=== PATIENT | female | born 1980 | race Caucasian/White ===

== ENCOUNTER 2017-02-11 12:28 | Emergency (ER) | payer OTHER ==
[~2017-02-11] VITALS: Ht 162.6 cm; Wt 95.2 kg
[~2017-02-11 12:28] MED LIST: ALBIPROI INH; ALBU.083IS IH; ALBU90I INH; ALBU90OI; ALBU90OI INH; ALBU90OI6 INH; ALBU90OI61 INH; ALBUIS IH; AMOCLA875 PO; AMOX500 PO; ANTOXYBENA BOTHEARS; ATOM40; AZIT250 PO; Alprazolam1 MG PO; Amoxil400 MG/5 M PO; BENTYL20 MG PO; BUSP15 PO; CEPH500 PO; CHILDREN S VIT; CLIN300 PO; CODACE30 PO; CODGUAEL PO; COMBIVENT RESPIM4 GM; CYCL10; CYCL10 PO; Crutch1 EACH MISC; DICL25ER PO; DIPH50 PO; DOXY100 PO; Duoneb 2.5-0.5 M3 ML INH; ESCI10 PO; ESCI20 PO; Esgic Tablet1 EACH PO; FLUSAL1005; FLUSAL1005 IH; FLUSAL2505; FLUSAL2505 IH; GUAPHELA PO; HYDACE10B; HYDACE5 PO; HYDHCL25 PO; IBUP600; IBUP600 PO; IBUP800; IBUP800 PO; INDO25 PO; LEVO750 PO; LEVSOD100 PO; LEVSOD50; MEDICAL MARIJUANNA; METCAR500 PO; METF500; METPRE4DP PO; MONT10T; MONT10T PO; NAPR500; NAPR500 PO; NAPR550 PO; NEOPOLHCSU OT; NUVA RING; Naprosyn500 MG PO; ONDA4ODT MM; OXYACE5T PO; OXYACE7.5T PO; PENVK250 PO; PENVK500 PO; PIOG15; PRED10 PO; PRED20 PO; PROACE100 PO; PROM25 PO; Prednisone20 MG PO; Prednisone50 MG PO; RANI150; RXCLIN PO; RXCODACET PO; RXHYDGUAS PO; RXONDA4ODT MM; RXOXYACE PO; RXPENVK250 PO; RXPROACE PO; RXPROM25 PO; RXSULTRIDS PO; SERT100 PO; SERT25 PO; SULTRIDS PO; SUMA25 PO; TRAACE PO; TRAM50 PO; TRAZ50 PO; UNKNOWN DIURETIC; Ventolin5 MG/1 ML IH; Vistaril50 MG PO; Zofran Odt4 MG SL; Zofran4 MG PO; Zofran8 MG PO
[2017-02-11 13:41] LABS: Alanine Aminotransfer (ALT/SGP 26 U/L (12-78); Albumin, Blood 3.7 g/dL (3.4-5.0); Albumin/Globulin Ratio 0.9 (0.8-1.8); Alk Phos 84 U/L (50-136); Anion Gap 5 mmol/L (6-16); Aspartate Aminotrans (AST/SGOT 19 U/L (12-37); Bilirubin, Total 0.4 mg/dL (0.1-1.0); Blood Urea Nitrogen 6 mg/dL (8-24); Bun/Creatinine Ratio 8.5 (12.0-20.0); CO2, Blood 27 mmol/L (21-32); Calcium, Blood 9.1 mg/dL (8.5-10.1); Chloride, Blood 107 mmol/L (98-108); Globulin, Blood 4.3 g/dL (2.2-4.0); Glomerular Filtration Rate >60 (60-); Glucose, Blood 100 mg/dL (70-99); Sodium, Blood 139 mmol/L (136-145)
[2017-02-11 13:45] LABS: Source, Urine Clean Catch
[2017-02-11 13:52] LABS: Bilirubin, Urine Neg (Neg); Blood, Urine 1+ (Neg); Glucose Qualitative, Urine Neg (Neg); Ketones, Urine Neg (Neg); Leukocyte Esterase, Urine 1+ (Neg); Nitrite, Urine Neg (Neg); Protein, Urine Neg (Neg); Urobilinogen, Urine NORM (Normal); pH, Urine 6.5 (5.0-8.0)
[2017-02-11 14:10] LABS: BASOPHILS ABSOLUTE AUTO 0.03 K/mm3 (0.00-0.23); BASOPHILS PERCENT AUTO 0 % (0-2); EOSINOPHILS ABSOLUTE AUTO 0.16 K/mm3 (0.00-0.68); EOSINOPHILS PERCENT AUTO 2 % (0-6); Hematocrit 42.1 % (33.0-51.0); Hemoglobin 13.4 g/dL (11.5-16.0); IMMATURE GRAN ABSOLUTE AUTO 0.02 K/mm3 (0.00-0.10); IMMATURE GRAN PERCENT AUTO 0 % (0-1); LYMPHOCYTES ABSOLUTE AUTO 3.36 K/mm3 (0.84-5.20); LYMPHOCYTES PERCENT AUTO 35 % (21-46); MONOCYTES ABSOLUTE AUTO 0.68 K/mm3 (0.16-1.47); MONOCYTES PERCENT AUTO 7 % (4-13); Mean Corpuscular HGB 26.9 pg (26.0-34.0); Mean Corpuscular HGB Conc 31.8 g/dL (31.5-36.5); Mean Corpuscular Volume 84 fL (80-100); NEUTROPHILS ABSOLUTE AUTO 5.45 K/mm3 (1.96-9.15); NEUTROPHILS PERCENT AUTO 56 % (41-73); Platelet Count 343 K/mm3 (150-400); RDW Coefficient Variation 15.4 % (11.7-14.2); RDW Standard Deviation 47.3 fL (35.1-46.3); Red Blood Cell Count 4.99 M/mm3 (3.80-5.20)
[2017-02-11 14:46] LABS: Appearance, Urine Hazy (Clear); Color, Urine Yellow (P-Yellow)
[2017-02-11 14:47] LABS: Red Blood Cells, Urine 0-2 /hpf (0-2); White Blood Cells, Urine 0-2 /hpf (0-5)
[2017-02-11 14:48] LABS: Bacteria Few /hpf; Squamous Epithelial Cells Many /hpf (Few)
[2017-02-11] MEDS ORDERED: Flagyl500 MG PO (17:56)
[2017-02-11] MEDS ORDERED: CIPR500 PO (17:56)
[2017-06-06] MEDS ORDERED: Zofran4 MG PO (21:40)
[2017-12-31] MEDS ORDERED: TRAZ50 PO (00:24)
[2018-01-20] MEDS ORDERED: Prednisone20 MG PO (04:50)
== END 2017-02-11 17:58 | disposition home or self-care (01) ==
LOC: ER 12:28
PROVIDERS: Physician Assistant
DX: K52.9 Noninfective gastroenteritis and colitis, unspecified (principal); J44.9 Chronic obstructive pulmonary disease, unspecified; F17.200 Nicotine dependence, unspecified, uncomplicated; Z88.5 Allergy status to narcotic agent; Z88.8 Allergy status to other drugs, medicaments and biological substances
CPT/HCPCS: 36415; 74177; 80053; 81000; 81001; 81025; 83690; 84702; 85025; 87086; 99284; Q9967

== ENCOUNTER 2017-07-31 14:28 | Emergency (ER) | payer OTHER ==
[~2017-07-31] VITALS: Ht 162.6 cm; Wt 88.5 kg
[~2017-07-31 14:28] MED LIST changes: +CIPR500 PO; +Flagyl500 MG PO
[2017-07-31] MEDS ORDERED: TRAZ50 PO (14:42)
[2017-07-31] MEDS ORDERED: CITA20 PO (14:42)
[2017-07-31] MEDS ORDERED: ONDA4ODT MM (15:58)
== END 2017-07-31 16:07 | disposition home or self-care (01) ==
LOC: ER 14:28
DX: S09.90XA Unspecified injury of head, initial encounter (principal); S20.221A Contusion of right back wall of thorax, initial encounter; Z88.5 Allergy status to narcotic agent; Z88.8 Allergy status to other drugs, medicaments and biological substances; Z79.899 Other long term (current) drug therapy; J44.9 Chronic obstructive pulmonary disease, unspecified; F17.200 Nicotine dependence, unspecified, uncomplicated; Y04.2XXA Assault by strike against or bumped into by another person, initial encounter
CPT/HCPCS: 70450; 72070; 96372; 99284; J0780; J1200; J1885

== ENCOUNTER 2017-12-12 01:17 | Emergency (ER) | payer OTHER ==
[~2017-12-12] VITALS: Ht 162.6 cm; Wt 81.7 kg
[~2017-12-12 01:17] MED LIST changes: +CITA20 PO
[2017-12-12 02:03] LABS: BASOPHILS ABSOLUTE AUTO 0.06 K/mm3 (0.00-0.23); BASOPHILS PERCENT AUTO 0 % (0-2); EOSINOPHILS PERCENT AUTO 1 % (0-6); Hematocrit 40.6 % (33.0-51.0); IMMATURE GRAN ABSOLUTE AUTO 0.09 K/mm3 (0.00-0.10); IMMATURE GRAN PERCENT AUTO 0 % (0-1); LYMPHOCYTES ABSOLUTE AUTO 3.18 K/mm3 (0.84-5.20); LYMPHOCYTES PERCENT AUTO 16 % (21-46); MONOCYTES ABSOLUTE AUTO 1.24 K/mm3 (0.16-1.47); MONOCYTES PERCENT AUTO 6 % (4-13); Mean Corpuscular HGB 27.6 pg (26.0-34.0); Mean Corpuscular Volume 86 fL (80-100); Mean Platelet Volume 11.1 fL (9.1-12.4); NEUTROPHILS ABSOLUTE AUTO 15.36 K/mm3 (1.96-9.15); NEUTROPHILS PERCENT AUTO 77 % (41-73); Platelet Count 322 K/mm3 (150-400); RDW Coefficient Variation 13.7 % (11.7-14.2); RDW Standard Deviation 43.4 fL (35.1-46.3); Red Blood Cell Count 4.71 M/mm3 (3.80-5.20); White Blood Cell Count 20.03 K/mm3 (4.00-11.30)
[2017-12-12 02:21] LABS: Alanine Aminotransfer (ALT/SGP 28 U/L (12-78); Alk Phos 77 U/L (50-136); Anion Gap 9 mmol/L (6-16); Aspartate Aminotrans (AST/SGOT 20 U/L (12-37); Bilirubin, Total 0.2 mg/dL (0.1-1.0); Blood Urea Nitrogen 13 mg/dL (8-24); Bun/Creatinine Ratio 17.9 (12.0-20.0); CO2, Blood 23 mmol/L (21-32); Chloride, Blood 107 mmol/L (98-108); Creatinine, Blood 0.73 mg/dL (0.40-1.00); Glomerular Filtration Rate >60 (60-); Glucose, Blood 121 mg/dL (70-99); Potassium, Blood 3.5 mmol/L (3.5-5.5); Sodium, Blood 139 mmol/L (136-145)
== END 2017-12-12 04:38 | disposition home or self-care (01) ==
LOC: ER 01:17
PROVIDERS: Emergency Medicine
DX: R11.2 Nausea with vomiting, unspecified (principal); G44.40 Drug-induced headache, not elsewhere classified, not intractable; T43.625A Adverse effect of amphetamines, initial encounter; J44.9 Chronic obstructive pulmonary disease, unspecified; Z88.5 Allergy status to narcotic agent; Z88.8 Allergy status to other drugs, medicaments and biological substances; Z79.899 Other long term (current) drug therapy
CPT/HCPCS: 36415; 80053; 81025; 83690; 85025; 93005; 93010; 96361; 96374; 96375; 99284-25; J1630; J1885; J2405; J7030

== ENCOUNTER 2017-12-15 14:04 | Emergency (ER) | payer OTHER ==
[~2017-12-15] VITALS: Ht 162.6 cm; Wt 81.7 kg
[2017-12-15] MEDS ORDERED: Robaxin500 MG PO (16:06)
[2017-12-15] MEDS ORDERED: KETO10 PO (16:06)
== END 2017-12-15 16:10 | disposition home or self-care (01) ==
LOC: ER 14:04
DX: M54.2 Cervicalgia (principal); Z88.5 Allergy status to narcotic agent; Z88.8 Allergy status to other drugs, medicaments and biological substances; Z79.899 Other long term (current) drug therapy; J44.9 Chronic obstructive pulmonary disease, unspecified; F17.200 Nicotine dependence, unspecified, uncomplicated
CPT/HCPCS: 72125; 96372; 99283-25; J1885

== ENCOUNTER 2018-06-10 12:46 | Inpatient (IN) | payer OTHER ==
[~2018-06-10] VITALS: Ht 162.6 cm; Wt 66.5 kg
[~2018-06-10 12:46] MED LIST changes: +KETO10 PO; +Robaxin500 MG PO
[2018-06-10 13:20] LABS: BASOPHILS ABSOLUTE AUTO 0.03 K/mm3 (0.00-0.23); BASOPHILS PERCENT AUTO 0 % (0-2); EOSINOPHILS ABSOLUTE AUTO 0.04 K/mm3 (0.00-0.68); EOSINOPHILS PERCENT AUTO 0 % (0-6); Hematocrit 38.8 % (33.0-51.0); IMMATURE GRAN ABSOLUTE AUTO 0.03 K/mm3 (0.00-0.10); IMMATURE GRAN PERCENT AUTO 0 % (0-1); LYMPHOCYTES ABSOLUTE AUTO 2.01 K/mm3 (0.84-5.20); LYMPHOCYTES PERCENT AUTO 20 % (21-46); MONOCYTES ABSOLUTE AUTO 0.69 K/mm3 (0.16-1.47); MONOCYTES PERCENT AUTO 7 % (4-13); Mean Corpuscular HGB 26.6 pg (26.0-34.0); Mean Corpuscular HGB Conc 30.9 g/dL (31.5-36.5); Mean Corpuscular Volume 86 fL (80-100); Mean Platelet Volume 10.3 fL (9.1-12.4); NEUTROPHILS ABSOLUTE AUTO 7.35 K/mm3 (1.96-9.15); NEUTROPHILS PERCENT AUTO 72 % (41-73); Platelet Count 404 K/mm3 (150-400); RDW Coefficient Variation 14.3 % (11.7-14.2); RDW Standard Deviation 44.4 fL (35.1-46.3); Red Blood Cell Count 4.51 M/mm3 (3.80-5.20); White Blood Cell Count 10.15 K/mm3 (4.00-11.30)
[2018-06-10 13:27] LABS: Salicylate <1.7 mg/dL (2.8-20.0)
[2018-06-10 13:32] LABS: Acetaminophen, Random <2.0 ug/mL (10.0-30.0)
[2018-06-10 13:40] LABS: Alanine Aminotransfer (ALT/SGP 50 U/L (12-78); Albumin, Blood 3.9 g/dL (3.4-5.0); Alk Phos 79 U/L (50-136); Anion Gap 6 mmol/L (6-16); Aspartate Aminotrans (AST/SGOT 53 U/L (12-37); Bilirubin, Total 0.4 mg/dL (0.1-1.0); Blood Urea Nitrogen 12 mg/dL (8-24); Bun/Creatinine Ratio 15.4 (12.0-20.0); CO2, Blood 28 mmol/L (21-32); Calcium, Blood 8.9 mg/dL (8.5-10.1); Chloride, Blood 108 mmol/L (98-108); Creatinine, Blood 0.78 mg/dL (0.40-1.00); Globulin, Blood 3.9 g/dL (2.2-4.0); Glomerular Filtration Rate >60 (60-); Glucose, Blood 133 mg/dL (70-99); Potassium, Blood 4.4 mmol/L (3.5-5.5); Sodium, Blood 142 mmol/L (136-145); Total Protein, Blood 7.8 g/dL (6.4-8.2)
[2018-06-10 14:21] LABS: U Amphetamine Screen DETECTED; U Barbituate Screen Not Detected; U Benzodiazapine Screen Not Detected; U Buprenorphine Screen Not Detected; U Cannabinoids Screen DETECTED; U Cocaine Screen Not Detected; U Methadone Screen Not Detected; U Methamphetamine Screen DETECTED; U Opiates Screen Not Detected; U Oxycodone Screen Not Detected; U Phencyclidine Screen Not Detected; U Propoxyphene Screen Not Detected
[2018-06-10 16:40] LABS: PCO2 Arterial 42.4 mmHg (35-45); PO2 Arterial 186 mmHg (80-100); pH Blood Arterial 7.41 (7.35-7.45)
--- NOTE | 2018-06-10 18:41 | NUR ---
1530 PT ADMITTED TO ICU-5 VIA STRETCHER AND INTUBATED. PROPOFOL GTT AT 50MCG AND INC. TO 60MCG. PT ATTEMPTING TO RAISE OFF OF BED AND REACH FOR ETT EVEN WITH RESTRAITS ON. PRN MEDS TO FOLLOW. LUNGS CLEAR TO ASCULTATION BUT PT HAS COPIOUS CLEAR/WHITE SECREEATIONS. IVÁN NEWTON AND NAHID IN SHORTLY AFTER ADMIT AND NEW ORDERS NOTED. DR WHITFIELD REQUESTING CTA FOR TRAMATIC CAROTID VESSEL DISECTION AND TO BE ARRANGED DEMOND. PT TO CT AT 1730 WITH RT AND TECH AND CALM WITH ATIVAN IN ADDITION TO ATIVAN.
--- NOTE | 2018-06-10 18:46 | NUR ---
PT RESTING WELL AFTER EXTRA ATIVAN GIVEN PROPOFOL ALONE HAS NOT BEEN SUFFICIENT TO MANNAGE AGITATION. VENT SETTINGS REMAIN AC 16-350-40%-5 PEEP. SATS NOTED AND STABLE. SBP NOTED IN 150-160 RANGE. VS AND I/O NOTED. FAMILY IN TO VISIT.
--- NOTE | 2018-06-10 23:37 | NUR ---
CARE ASSUMED REPORT RECEIVED, CARE ASSUMED AT 1900. PT INTUBATED AND SEDATED. MULTIPLE FAMILY MEMBERS IN SINCE ASSUMING CARE. VITALS STABLE. SEE SHIFT ASSESSMENT. ATTEMPTED TO TITRATE PROPOFOL DOWN, PT QUICKLY BECAME AGITATED, PULLING AT RESTRAINTS AND SHAKING HEAD FROM LEFT TO RIGHT. PT RESEDATED TO PROTECT LINES/TUBES AND TO MAINTAIN CERVICAL COLLAR PRECAUTIONS. WILL MINIMIZE STIMULI.
[2018-06-11 03:35] LABS: Hematocrit 40.2 % (33.0-51.0); Mean Corpuscular HGB 26.5 pg (26.0-34.0); Mean Corpuscular HGB Conc 29.9 g/dL (31.5-36.5); Mean Platelet Volume 10.5 fL (9.1-12.4); Platelet Count 301 K/mm3 (150-400); RDW Coefficient Variation 14.4 % (11.7-14.2); RDW Standard Deviation 46.5 fL (35.1-46.3); Red Blood Cell Count 4.53 M/mm3 (3.80-5.20); White Blood Cell Count 11.86 K/mm3 (4.00-11.30)
[2018-06-11 03:43] LABS: Mean Corpuscular Volume 89 fL (80-100)
[2018-06-11 04:01] LABS: Alanine Aminotransfer (ALT/SGP 40 U/L (12-78); Albumin, Blood 3.4 g/dL (3.4-5.0); Alk Phos 71 U/L (50-136); Anion Gap 7 mmol/L (6-16); Aspartate Aminotrans (AST/SGOT 44 U/L (12-37); Bilirubin, Total 0.4 mg/dL (0.1-1.0); Blood Urea Nitrogen 8 mg/dL (8-24); Bun/Creatinine Ratio 10.5 (12.0-20.0); CO2, Blood 26 mmol/L (21-32); Calcium, Blood 8.5 mg/dL (8.5-10.1); Chloride, Blood 110 mmol/L (98-108); Creatinine, Blood 0.77 mg/dL (0.40-1.00); Globulin, Blood 3.5 g/dL (2.2-4.0); Glomerular Filtration Rate >60 (60-); Glucose, Blood 69 mg/dL (70-99); Magnesium, Blood 2.3 mg/dL (1.6-2.4); Phosphorus, Blood 4.2 mg/dL (2.5-4.9); Potassium, Blood 3.9 mmol/L (3.5-5.5); Sodium, Blood 143 mmol/L (136-145); Total Protein, Blood 6.9 g/dL (6.4-8.2); Troponin I <0.015 ng/mL (0.000-0.040)
[2018-06-11 04:27] LABS: BAND PERCENT MAN 3 % (0-8); BASOPHILS PERCENT MAN 0 % (0-2); EOSINOPHILS ABSOLUTE MAN 0.11 K/mm3 (0.00-0.68); EOSINOPHILS PERCENT MAN 1 % (0-6); LYMPHOCYTES ABSOLUTE MAN 3.55 K/mm3 (0.84-5.20); LYMPHOCYTES PERCENT MAN 30 % (21-46); MONOCYTES ABSOLUTE MAN 1.18 K/mm3 (0.16-1.47); MONOCYTES PERCENT MAN 10 % (4-13); NEUTROPHILS ABSOLUTE MAN 6.99 K/mm3 (1.96-9.15); SEG NEUTROPHILS PERCENT MAN 56 % (41-73); TOTAL CELLS COUNTED 100
--- NOTE | 2018-06-11 05:00 | NUR ---
DR. URENA COMMUNICATION SPOKE WITH DR. URENA REGARDING PT'S GLUCOSE ON LABS THIS AM. NEW ORDER FOR FLUID CHANGE AND BLOOD SUGAR MONITORING.
--- NOTE | 2018-06-11 05:12 | NUR ---
SEDATION TITRATION/NEURO ASSESSMENTS AT THIS TIME PT HAS NOT BEEN CLEARED BY DR. WHITFIELD FROM C-SPINE PRECAUTIONS. WITH ANY STIMULI PT BECOMES AGITATED THRASHING HEAD, NECK, ARMS AND LEGS. PT SITS PULLS LEGS UP IN BED NEARLY REACHING ETT. PT HAS BEEN MEDICATED WITH PROPOFOL AND ATIVAN, UNABLE TO TITRATE SEDATION UNTIL C-SPINE COLLAR CLEARANCE. PT HAS CONSISTENTLY WITHDRAWN TO PAIN IN ALL EXTREMITIES, PUPILS REMAIN PINPOINT WITH NO MOVEMENT. PT NOTED TO OPEN EYES SPONTANEOUSLY ONCE LAST NIGHT WITH STIMULI. OTHERWISE, EYES CLOSED. STRENGTH EQUAL THROUGHOUT. PT REMAINS IN SOFT WRIST RESTRAINTS AND MITTS DUE TO EXTREME AGITATION WITH STIMULI AND RISK FOR SELF-EXTUBATION OR DAMAGE TO LINES/TUBES.
[2018-06-11 05:13] LABS: PCO2 Arterial 43.9 mmHg (35-45); PO2 Arterial 92.2 mmHg (80-100)
--- NOTE | 2018-06-11 06:25 | NUR ---
SUMMARY THIS MORNING AFTER ATIVAN, PT SEDATED SUFFICIENTLY TO ALLOW CARES WITHOUT BECOMING AGITATED. BY END OF COMPLETION OF X-RAY AND ADL'S, PT WAS AROUSING, COUGHING, SITTING COMPLETELY UP IN BED. SETTLES WITH REASSURANCE AND DECREASED STIMULIATION. VITALS STABLE THROUGHOUT SHIFT. BP IMPROVED WITH SEDATION. FIO2 TITRATED TO 35%. OTHERWISE, VENT SETTINGS UNCHANGED AND PT TOLERATING WELL. RIGHT ANKLE CUT CONTINUES TO BLEED REQUIRING TWO DRESSING CHANGES LAST NIGHT. FAMILY CONTINUED TO BE IN AND OUT UNTIL APPROX 0100. SEE FLOWSHEETS/REASSESSMENTS.
--- NOTE | 2018-06-11 07:12 | NUR ---
REPORT TO NE UMAÑA AND NE BOWERS TO ASSUME CARE
--- NOTE | 2018-06-11 08:17 | NUR ---
SEDATION VACATION PROPOFOL TURNED OFF AT 0817 TILL 08. PT BRIEFLY OPENED EYES WITH VERBAL STIMULATION, FOLLOWED SIMPLE COMMANDS, BUT DID NOT ANSWER YES/NO QUESTIONS. PROPOFOL TURNED BACK ON AT 50MCG/KG/MIN.
--- NOTE | 2018-06-11 10:00 | NUR ---
DR WHITFIELD IN TO ASSESS PT. UDPDATED WITH PT'S STATUS. DR WHITFIELD REPORTS THAT PT CANNOT BE CLEARED FROM C-SPINE COLLAR UNTIL PT IS EXTUBATED AND CAN PARTICIPATE IN A PHYSICAL C-SPINE EXAM.
--- NOTE | 2018-06-11 11:07 | NUR ---
DR. NEWTON ASSESSED PATIENT FOR POSSIBLE EXTUBATION PER DR. NEWTON. PROPOFOL PLACED ON STANDBY AT THIS TIME.
--- NOTE | 2018-06-11 12:00 | NUR ---
SPOKE WITH THE CAMERA/SITTER AND VERIFIED PT IS BEING MONITORED VIA CAMERA AT 1159.
--- NOTE | 2018-06-11 12:02 | NUR ---
EXTUBATED PT AT 1150, OUT OF RESTRAINTS AT 1150, FACE SHEET FAXED DOWN TO ER FOR DR. JARRETT, MENTAL HEALTH ENVIRONMENT RISK ASSESSMENT COMPLETE, AND DR. GREEN AND DR. NEWTON PRESENT AND INITIATING TWO MD HOLD.
--- NOTE | 2018-06-11 12:35 | NUR ---
PT REMOVING HER CERVICAL SPINE COLLAR. HAD TO REAPPLY IT AND EDUCATE WHY IT IS IMPORTANT TO NOT DO THAT.
--- NOTE | 2018-06-11 12:53 | NUR ---
PT ADVOCATE: PT ASKS NE BOWERS IF SHE CAN GO TO THE COURTY[facility]. THIS RN EDUCATED PT THAT R/T 2 MD HOLD, THAT SHE COULD NOT LEAVE THE ROOM. PT STATES, "MY AND 2 GAURDS CAN GO WITH ME." EXPLAINED ONCE MORE THAT REQUEST CANNOT BE FULFILLED R/T PT PT'S HOLD/CONDITION (RECENT EXTUBATION). PT ASKS TO SPEAK TO PT ADVOCATE, WHOM WILL BE AT THE BEDSIDE SHORTLY TO SPEAK WITH PT.
--- NOTE | 2018-06-11 13:11 | NUR ---
CALLED TO CONFIRMED THAT PT'S FACESHEET FOR PYSCH REFERRAL ARRIVED TO THE ER. CRISIS RN DID CONFIRM THAT PAPERWORK ARRIVED.
--- NOTE | 2018-06-11 13:28 | NUR ---
PT ADVOCATED ARRIVED. INTRODUCED MASON TO PATIENT AND EXPLAINED SHE WAS THE PT ADVOCATED. PT STARTED EXPAINING THAT OTHER INMATES AND HERSELF WERE TYING TOWELS TOGETHER TO SEE WHO COULD GET THEIRS TO HOLD TIGHT WHILE TRYING TO HANG THEMSELVES. ALSO, REPORTED THAT THEY WERE USING RAZORS TO SEE HOW LONG IT TOOK TO GET TO AN ARTERY. PT SHAKES HER HEAD AFTER STATING THIS AND SAYS, "IT WAS STUPID."
--- NOTE | 2018-06-11 13:50 | NUR ---
DR. WHITFIELD SAW PT AND REEVALUATED PT FOR C-SPINE COLLAR. NOTED TENDERNESS IN POSTERIOR LIGAMENTS OF NECK AND STATED TO NOT TAKE COLLAR OFF AT THIS TIME.
--- NOTE | 2018-06-11 14:44 | NUR ---
PT UPDATE: PT PULLED OUT IV WHILE NE BOWERS WAS GETTING PT MORE JUICE PER REQUEST. WHILE ELISSA WAS LOOKING FOR A NEW IV SITE, PT WAS CONTINUOUSLY TRYING TO PULL OFF VEST. UNABLE TO REDIRECT PT, AND SHE CONTINUED TO ATTEMPT TO PULL OFF VEST OR SLIDE OUT OF IT. PT WAS THEN PLACED INTO BILATERAL WRIST RESTRAINTS IN ADDITION TO VEST TO KEEP PT SAFE. SECURITY CALLED TO BEDSIDE TO ASSIST WITH THIS.
--- NOTE | 2018-06-11 18:00 | NUR ---
PT UPDATE: PT CONTINUES TO THRASH IN BED AND ATTEMPTS TO GET IV'S/TELEMETRY AND BP WIRES AND PULL THEM APART. PT BROKE BP CUFF. PT FOUND USING TOES TO TRY TO GET OUT OF WRIST RESTRAINTS AND WAS NOT REDIRECTABLE AT THIS TIME. EXPLAINED TO PT THAT 4 POINT RESTRAINTS WOULD BE NEEDED IF SHE DID NOT CEASE HER DESTRUCTIVE BEHAVIORS, PT CONTINUED TO TRY TO GET OUT OF BILATERAL TAT RESTRAINTS USING TOES. PT PLACED IN 4 POINT RESTRAINTS AT THIS TIME.
--- NOTE | 2018-06-11 18:42 | NUR ---
SHIFT SUMMARY PT IS CURRENTLY SLEEPING AFTER MANY EVENTS OF AGITATION. PT IS ALERT AND MOSTLY ORIENTED TO HER SITUATION, HOWEVER, IS NOW ON TAT RESTRAINTS AFTER SLIPPING OUT OF SWB RESTRAINTS NUMEROUS TIMES. PT RIPPED OUT HER IV ON HER RIGHT HAND, AND THE CHORD TO THE BLOOD PRESSURE CUFF. PT'S HAS BEEN PRESENT OFF AND ON THROUGHOUT DAY.
--- NOTE | 2018-06-11 20:31 | NUR ---
PM NOTE. ASSUMED CARE OF PT APROX 1900, PT IS SEDATED AT THIS TIME W/4 POINT RESTRAINTS DUE TO HER PULLING LINES/TUBES AND ATTEMPTING TO CLIMB OUT OF BED. CIRCULATION AND PERSONAL NEEEDS WERE CHECKED AT THE START OF THIS SHIFT. PT'S HR NSR IN THE 80'S PER AGENT CONTRACT CLERK. PT'S BP 152/93. NO EDEMA NOTED ON ASSESSMENT. L/S CLEAR T/O AND DIM IN THE BASES, PT IS ON RA W/SATS >92%. BT PRESENT AND HYPOACTIVE, ABD IS SOFT AND NONTENDER TO PALP. CALL LIGHT IN REACH, BED IS LOCKED AND LOW WILL CONTINUE TO MONITOR.
--- NOTE | 2018-06-11 22:38 | NUR ---
PT UPDATE... PT WAS FOUND TO BE INCONT OF URINE, PT VERY DROWSY AT THIS TIME BUT IS ABLE TO RESPOND TO VERBAL STIMULI/TOUCH. PT WAS GIVEN A BED BATH AND LINEN CHANGE, ATTENDS WAS PLACED TO PROVIDE PROTECTION AND DIGNITY TO THE PT. PT WAS TAKEN OUT OF THE TUFF CUFFS, PT IS CURRENTLY IN BILAT SOFT WRIST RESTRAINTS AND ROSA VEST. PT IS RELAXED AND SLEEPING AT THIS TIME. CALL LIGHT IN REACH, BED IS LOCKED AND LOW WILL CONTINUE TO MONITOR.
--- NOTE | 2018-06-11 22:53 | NUR ---
PT UPDATE... PT HAS BEEN MAKING A "HOARSE, OBSTRUCTIVE, SNORING" SOUND WHEN BREATHING, PT'S HEAD HAS BEEN REPOSITIONED SEVERAL TIMES AND THIS DOES NOT HELP OR CHANGE THE SOUND. PT'S O2 SATS ARE >95% ON RA, PT IS NOT APNIC AT THIS TIME. WILL CONINUE TO MONITOR.
--- NOTE | 2018-06-12 01:20 | NUR ---
PT UPDATE... PT'S BREATHING HAS CONTINUED TO HAVE SEVERE STRIDOR QUAILITY, PROVIDER AND RT INVOLVED AND ORDERS OBTAINED. PT'S O2 SATS ARE 94% ON RA AT THIS TIME, POSITIONING IS NOT IMPROVING THE STRIDOR AT THIS TIME. WILL CONTINUE TO MONITOR.
[2018-06-12 03:30] LABS: BASOPHILS ABSOLUTE AUTO 0.04 K/mm3 (0.00-0.23); BASOPHILS PERCENT AUTO 0 % (0-2); EOSINOPHILS ABSOLUTE AUTO 0.14 K/mm3 (0.00-0.68); EOSINOPHILS PERCENT AUTO 1 % (0-6); Hematocrit 34.4 % (33.0-51.0); Hemoglobin 10.7 g/dL (11.5-16.0); IMMATURE GRAN ABSOLUTE AUTO 0.04 K/mm3 (0.00-0.10); IMMATURE GRAN PERCENT AUTO 0 % (0-1); LYMPHOCYTES ABSOLUTE AUTO 1.62 K/mm3 (0.84-5.20); LYMPHOCYTES PERCENT AUTO 13 % (21-46); MONOCYTES ABSOLUTE AUTO 0.67 K/mm3 (0.16-1.47); MONOCYTES PERCENT AUTO 5 % (4-13); Mean Corpuscular HGB 26.9 pg (26.0-34.0); Mean Corpuscular HGB Conc 31.1 g/dL (31.5-36.5); Mean Platelet Volume 9.8 fL (9.1-12.4); NEUTROPHILS ABSOLUTE AUTO 10.21 K/mm3 (1.96-9.15); NEUTROPHILS PERCENT AUTO 80 % (41-73); Platelet Count 280 K/mm3 (150-400); RDW Coefficient Variation 14.3 % (11.7-14.2); RDW Standard Deviation 45.2 fL (35.1-46.3); Red Blood Cell Count 3.98 M/mm3 (3.80-5.20); White Blood Cell Count 12.72 K/mm3 (4.00-11.30)
[2018-06-12 03:41] LABS: Mean Corpuscular Volume 86 fL (80-100)
[2018-06-12 03:53] LABS: Anion Gap 6 mmol/L (6-16); Blood Urea Nitrogen 5 mg/dL (8-24); Bun/Creatinine Ratio 7.6 (12.0-20.0); CO2, Blood 28 mmol/L (21-32); Calcium, Blood 8.2 mg/dL (8.5-10.1); Chloride, Blood 107 mmol/L (98-108); Creatinine, Blood 0.66 mg/dL (0.40-1.00); Glomerular Filtration Rate >60 (60-); Glucose, Blood 93 mg/dL (70-99); Potassium, Blood 3.5 mmol/L (3.5-5.5); Sodium, Blood 141 mmol/L (136-145)
--- NOTE | 2018-06-12 04:55 | NUR ---
SHIFT SUMMARY. PT HAS SLEPT HARD ALL SHIFT AND HAS NOT REQUIRED ANY ADDITIONAL MEDICATION FOR AGITATION. PT'S STRIDOR HAS DECREASED FROM PREVIOUS NOTE, BUT IS STILL PRESENT. PT USED THE BED BENSON W/PROMPTING AND VOIDED 650MLS. DURING THIS TIME PT WAS ABLE STATE SHE WAS "IN THE HOSPTIAL", BUT DID NOT KNOW THE DATE/YEAR OR TOWN. PT ASKED "WHERE IS MY SON." PT APPEARED CONCERNED WHEN THIS RN TOLD HER " I DON'T KNOW WHERE HE IS RIGHT NOW." PT IS ABLE TO RESPOND TO SIMPLE QUESTIONS AND FOLLOWS COMMANDS. PT HAS NOT ATTEMPTED TO PULL AT HER LINES OR GET OUT BED AT THIS TIME. PT'S VS HAVE BEEN STABLE T/O SHIFT, PT DENIES ANY CHEST PAIN/PRESSURE, N/V OR SOB. CALL LIGHT IN REACH, BED IS LOCKED AND LOW W/BED ALARM ON. WILL CONTINUE TO MONITOR UNTIL REPORT IS GIVEN TO ONCOMING RN.
[2018-06-12 08:53] LABS: Source, Urine Clean Catch
[2018-06-12 09:36] LABS: Appearance, Urine Clear (Clear); Bilirubin, Urine Neg (Neg); Blood, Urine 5+ (Neg); Color, Urine Yellow (P-Yellow); Glucose Qualitative, Urine Neg (Neg); Ketones, Urine Neg (Neg); Leukocyte Esterase, Urine 1+ (Neg); Nitrite, Urine Neg (Neg); Protein, Urine Neg (Neg); Urobilinogen, Urine NORM (Normal)
[2018-06-12 09:53] LABS: Red Blood Cells, Urine 0-2 /hpf (0-2); White Blood Cells, Urine 0-2 /hpf (0-5)
[2018-06-12 09:54] LABS: Bacteria Many /hpf; Squamous Epithelial Cells Few /hpf (Few)
--- NOTE | 2018-06-12 10:27 | NUR ---
EDUCATION: HAD EXTENSIVE CONVERSATION WITH PT'S SON, RE: PT'S CURRENT MEDICAL STATUS, PAST MEDICAL HX, ADVANCE DIRECTIVES, TAR BOILER LIFE SUPPORT, TRACH/PEG TUBE PLACEMENT.
--- NOTE | 2018-06-12 12:51 | NUR ---
PT UPDATE: PT FOUND TRYING TO GET OOB WITHOUT HELP AFTER REC'ING A CALL FROM THE CENTRAL MONITORING STATION. PT ASKS, "WHY AM I TIED TO THIS CHAIR?" REFERRING TO ROSA VEST. PT REMINDED THAT SHE SHOULD NOT GET OOB BY HERSELF R/T LINES/UNSTEADY GAIT. PT REMAINS IMPULSIVE DISPITE REDIRECTION/EDUCATION ABOUT USING CALL LIGHT/ROSA VEST/SAFETY PRECAUTIONS. PT CONTINUES TO OBSESS OVER HER PHONE NUMBERS. CONTINUES TO ATTEPT TO CALL WHO HAS NOT BEEN IN TO VISIT OR CALLED TODAY WITHOUT SUCCESS. PT HELPED WITH THE DIALING NUMBERS MULTIPLE TIMES. PT AGITATED THAT SHE DID NOT RECIEVE WHAT SHE WANTED FOR LUNCH, SHE DID NOT CALL THE STAFF TO LET THEM KNOW THAT SHE HAD COMPLETED IN AND IT WAS SITTING ON HER BEDSIDE TABLE. SENT MENU DOWN TO [facility] TO SEE IF THEY COULD FULFILL ANY ADD'L REQUEST FOR PT. AWAITING RESPONSE FROM [employer].
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
--- NOTE | 2018-06-12 19:15 | NUR ---
ASSUMING CARE OF PT AT THIS TIME. PT REPORT RECEIVED AT BEDSIDE WITH OFFGOING NURSES, ELISSA OLIIVA AND LEEROY RN. PT LAYING IN BED, SLEEPING UPON ENTERING THE ROOM. VS STABLE - SEE VS FS. PT DOES NOT APPEAR TO BE IN DISTRESS AT THIS TIME. WILL REVIEW PLAN OF CARE.
--- NOTE | 2018-06-12 19:23 | NUR ---
SHIFT SUMMARY PT REMAINS ON TWO MD HOLD AFTER TELEPSYCH APPT TODAY (SEE NOTE REGARDING HOW THAT WENT). PT HAD A STATUS CHANGE TO MED NO TELLY. PT IS CALM, COOPERATIVE AND OUT OF RESTRAINTS AT THIS TIME. FOR MOST OF SHIFT PT HAS BEEN FAIRLY CALM, BUT TESTING THE LIMITS OF THE POLICIES AND THE ASSOCIATED RULES. HAS BEEN AT BEDSIDE FOR MAJORITY OF DAY. TELEPSYCH IS TO RE-EVALUATE TOMORROW, 06/13/18.
--- NOTE | 2018-06-12 19:30 | NUR ---
ASSESSEMENT PT CALM, QUIET, COOPERATIVE, FREQUENTLY AMBULATING TO DOOR AND YELLING OUT FOR STAFF, OCC CRYING, LABILE, OCC SMILING, A&O X4, SLOW TO RESPOND, MANIPULATIVE BEHAVIORS, OCC SLOW TO RESPOND. SENSATION INTACT. DENIES N/T. PT OLVERA. NO WEAKNESS NOTED. PT REPOSITIONS SELF. PT AMBULATES SELF IN ROOM. PT DENIES PAIN/DISCOMFORT. NO S/SX OF PAIN/DISCOMFORT. PT DENIES SI. PT STATED, "I WANTED TO HURT MYSELF BEFORE, BUT I DON'T NOW". SI PRECAUTIONS MAINTAINED, INCLUDING SI CAMERA ON. ALL LINES/CORDS, BELONGINGS, TWO CHAIRS, AND TWO TRASHCANS REMOVED FROM ROOM. PT'S CALL LIGHT REMAINS IN PLACE. PT'S ROOM IS DIRECTLY ACROSS FROM NURSES STATION WITH CLOSE SUPERVISION. LUNGS CLEAR. PT ON RA. OXY SAT >95%. RR 18. DENIES SOB. OCC NONPRODUCTIVE COUGH. AFEBRILE. NO TELE. RADIAL PULSE 90. BP STABLE - SEE VS FS. STRONG PULSES. WARM, PINK SKIN. ACTIVE BT X4 QUADRANTS. ABD MILD DIST (PT STATES ABD DIST IS NORMAL), SOFT, NONTNEDER. NO N/V. NO BM. PT VOIDS WITH BATHROOM PRIVELEGES. CLEAR YELLOW URINE NOTED. PIV X1 - SL.
--- NOTE | 2018-06-12 20:48 | NUR ---
DR. BAIN PT C/O R ANKLE PAIN. CNVI 1. NO NONVERBAL S/SX OF PAIN/DISCOMFORT NOTED. PT REFUSES TYLENOL AT THIS TIME. PT IS REQUESTING ANOTHER PAIN MEDICATION AT THIS TIME. PT ALSO REQUESTS "SOMETHING FOR SLEEP". CALLED DR. BAIN AT THIS TIME. DR. BAIN ORDERED MELATONIN PRN AT BEDTIME FOR INSOMNIA. NO NEW ORDERS FOR PAIN AT THIS TIME. WAITING FOR VERIFICATION OF MEDICATION FROM PHARMACY AT THIS TIME.
[2018-06-13 03:33] LABS: Hematocrit 34.3 % (33.0-51.0); Hemoglobin 10.7 g/dL (11.5-16.0); Mean Corpuscular HGB 26.4 pg (26.0-34.0); Mean Corpuscular HGB Conc 31.2 g/dL (31.5-36.5); Mean Corpuscular Volume 85 fL (80-100); Mean Platelet Volume 10.4 fL (9.1-12.4); Platelet Count 330 K/mm3 (150-400); RDW Standard Deviation 43.5 fL (35.1-46.3); Red Blood Cell Count 4.05 M/mm3 (3.80-5.20); White Blood Cell Count 22.77 K/mm3 (4.00-11.30)
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
--- NOTE | 2018-06-13 08:00 | NUR ---
PT UPDATE: PT'S CAM AT THE BEDSIDE. PT FOUND SITTING IN HIS LAP. BROUGHT PT A CHAIR AND ASKED THEM TO SIT SEPARATELY. SHORTLY LATER, NE BOWERS HAD TO ASK CAM TO REMOVE THE DRINK HE BROUGHT INTO ROOM. AGAIN, A SHORT TIME LATER THE CENTRAL MONITOR CALLED RN AND REPORTED PT'S HANDED HER SOMETHING AND THEN SHE WAS SEEN REACHING IN HER PANTS. ASKED PT ABOUT HER BEHAVIORS AND PT/HUBBY DENY EXCHANGING ANYTHING. PT THEN SOWERED (THIS RN CHECKED RECLINER, BED, AND THE REST OF THE ROOM). NOTHING FOUND. ONCE PT RETURNED TO ROOM, SHE IMMEDIATELY USED THE BATHROOM. CENTRAL MONITORING CALLED TO REPORT THE PT REACHED DOWN AND APPEARED TO GRAB SOMETHING FROM HER GROIN AND THEN PUT HER HAND TO HER MOUTH, THOUGH SHE WAS TAKING SOMETHING. A SHORT TIME LATER PT WAS SEEN FOLDING HER LINENS IN A VERY PARTICULAR MANNER, THEN FLIPS OF THE SHEETS AND APPEARS THOUGH SHE SLIPPED SOMETHING IN HER MOUTH WHILE ATTEMPTING TO HIDE BEHIND THE SHEETS. PT AGAIN DENIES THAT SHE TOOK ANYTHING OR HAS ANYTHING ON HER.
--- NOTE | 2018-06-13 09:50 | NUR ---
PT UPDATE: PT COMPLETED TELEPYSCH. DR GONZALEZ TO CONTACT DR GREEN TO MAKE INPT PYSCH AND MEDICATION RECOMMENDATIONS. PT STATES, "I'M NOT GOING TO INPT PYSCH. I HAVE AN APPT IN 3 DAYS WITH [facility] TO SEE MY CHILDREN AND START THE DRUG REHAB PROGRAM."
--- NOTE | 2018-06-13 10:16 | NUR ---
AND DRYING SUPERVISOR COOKING CASING PHONE CALL PT REQUESTING TO SPEAK WITH HER AND DRYING SUPERVISOR COOKING CASING. PHONE PROVIDED TO PT AND THIS RN DIALED NUMBER TO [facility] CALL. PT SPOKE WITH HIM FOR APPROX 10 MINUTES ASKING FOR ADVICE. SHE STATES HE RECOMMENDED TO HER TO FOLLOW THE RULES AND REMAIN CALM, AND THAT SHE SHOULD ASK THE "HOSPITAL DIRECTOR" FOR PERMISSION TO GO OUTSIDE FOR 2 CIGARETTES PER DAY WITH NURSING STAFF AND SECURITY WELL ASK FOR 1 PHONE CALL TO HER PER DAY. DISCUSSED THIS WITH PRIMARY CARE RN LEEROY.
--- NOTE | 2018-06-13 11:39 | NUR ---
UPDATE TO HERMAN ORDONEZ (OR J CARLOS?) FROM [facility] AT 1125; IN ROOM WITH PATIENT FROM [id number].
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
--- NOTE | 2018-06-13 13:07 | NUR ---
CALL BACK FROM [facility]: WORKER AT [facility] STATES THEY CURRENTLY ARE FULL BUT THAT THIS PT DOES NOT SEEM APPROPRIATE FOR THE CURRENT GROUP OF PATIENTS THEY HAVE AT THE FACILITY AT THIS TIME. THEY STATE THEY WILL CALL BACK IF A BED BECOMES AVAILABLE FOR HER.
--- NOTE | 2018-06-13 13:57 | NUR ---
CALLED PATIENT ADVOCATE: LEFT MESSAGE WITH PT ADVOCATE PER PT REQUEST TO TALK TO HER PERSONAL CONCERNS AND SOME BUSINESS THAT SHE WOULD LIKE ASSISTANCE WITH PRIOR TO HER BEING TNX'D TO A [facility] FACILITY.
--- NOTE | 2018-06-13 15:29 | NUR ---
HAND OFF TO MASON GAVE REPORT TO MASON, THE NURSE WHO WILL BE NOW TAKING CARE OF THIS PT, AROUND 1515.
--- NOTE | 2018-06-13 17:29 | NUR ---
PT C/O HEADACHE AND TINGLING FEET AND LIPS, BLOOD GLUCOSE 138 AT THIS TIME. PT FEBRILE AT 100.0, BP ELEVATED. TYLENOL ADMINISTERED FOR HEADACHE. PT RESTING IN BED WITH EYES CLOSED, DENIES OTHER NEEDS. WILL CONTINUE TO MONITOR.
--- NOTE | 2018-06-13 18:41 | NUR ---
1430: CARE ASSUMED. LS CTA, BT+, HRR. PT SITTING UP IN CHAIR EATING ICE CREAM, DENIES PAIN OR OTHER NEEDS AT THIS TIME. SUICIDE PRECAUTIONS IN PLACE, VIDEO MONITORING BEING UTILIZED. 1845: ALTHOUGH PT REMAINED NEEDY AND MODERATELY MANIPULATIVE THIS AFTERNOON, SHE WAS PLEASANT AND COOPERATIVE WITH CARE. ATTEMPTED TO GET INTO LOCKED CABINETS IN ROOM X2, PERSONAL BELONGINGS THEN REMOVED FROM ROOM AND PLACED IN LOCKED CABINET IN UTILITY ROOM. PT RESPECTED BOUNDARIES WHEN ASKED TO STAY AWAY FROM OPEN DOORWAY, TOOK MEDICATIONS WITHOUT DIFFICULTY. BP SLIGHTLY HYPERTENSIVE AND TACHYCARDIC, LOW GRADE FEVER PRESENT, PT RECEIVING ABX PER ORDERS. TYLENOL ADMINISTERED X1 FOR HEADACHE WITH GOOD RESULTS REPORTED. LS REMAIN CLEAR, HRR, BT+, PT DID NOT HAVE A BM TODAY. PT WITHDRAWN, SITTING AT WINDOW AND STARING OUT MOST OF THE AFTERNOON, NO ATTEMPTS AT SELF HARM, NO COMBATIVE BEHAVIORS DISPLAYED. REPORT TO ONCOMING NURSE.
--- NOTE | 2018-06-13 19:15 | NUR ---
ASSUMING CARE OF PT AT THIS TIME. PT REPORT RECEIVED AT BEDSIDE WITH OFFGOING NURSE, MASON OLIVIA. PT SITTING IN CHAIR, LOOKING OUT OF WINDOW UPON ENTERING THE ROOM. VS STABLE - SEE VS FS. PT DOES NOT APPEAR TO BE IN DISTRESS AT THIS TIME. WILL REVIEW PLAN OF CARE.
--- NOTE | 2018-06-13 19:30 | NUR ---
ASSESSMENT / DR. GARRISON PT CALM, QUIET, COOPERATIVE, FREQUENTLY AMBULATES IN ROOM INDENDENTLY, OCC CRYING, LABILE, OCC SMILING, WITHDRAWN, OCC SITTING IN CHAIR AND LOOKING OUT WINDOW, TALKING LESS WITH STAFF TODAY. SENSATION INTACT. DENIES N/T. PTMAE. NO WEAKNESS NOTED. PT REPOSITIONS SELF. PT AMBULATES INDENDENTLY. PTT DENIES PAIN/DISCOMFORT. NO S/SX OF PAIN/DISCOMFORT. PT DENIES CURRENT SI. PT'S CALL LIGHT REMAINS IN [place]. PT'S ROOM IS DIRECTLY ACROSS FROM NURSES STATION WITH CLOSE SUPERVISION. SI PRECAUTIONS WITH CAMERA MONITORING. INGRID (THE DESIGN ANALYST) CALLED THIS RN REGARDING SUSPICIOUS ACTIVITY IN PT'S ROOM. PER INGRID, THE PT WAS MESSING WITH THE LINENS AND PILLOW CASES, WELL WAS HIDING BEHIND A CHAIR IN THE ROOM THAT IS NOT VISIBLE TO THE CAMERA. OLD LINENS REMOVED FROM BED AND NEW LINENS APPLIED. CHAIR REMOVED FROM ROOM. MARKERS REMOVED FROM ROOM D/T PT DRAWING ON LINENS. WAITING FOR PLACEMENT TO PSYCH FACILITY. PT REMAINS ON 2MD HOLD. LUNGS CLEAR. PT ON RA. OXY SAT >95%. RR 16. DENIES SOB. OCC NONPRODUCTIVE COUGH. AFEBRILE. NO TELE. RADIAL PULSE 110'S. HYPERTENSIVE WITH SBP 160'S TO 170'S. CALLED DR. GARRISON REGARDING HYPERTENSION. DR. GARRISON PLANNING TO ORDER [facility]VASC. WAITING FOR MEDICATION ORDER AT THIS TIME. STRONG PULSES. WARM, PINK SKIN. ACTIVE BT X4 QUADRANTS. ABD MILD DIST (PT STATES ABD DIST IS NORMAL), SOFT, NONTENDER. NO N/V. NO BM. PT VOIDS WITH BATHROOM PRIVELEGES. CLOUDY, YELLOW, FOUL SMELLING URINE. PIV X1 - SL.
[2018-06-14 03:23] LABS: BASOPHILS ABSOLUTE AUTO 0.05 K/mm3 (0.00-0.23); BASOPHILS PERCENT AUTO 0 % (0-2); EOSINOPHILS ABSOLUTE AUTO 0.01 K/mm3 (0.00-0.68); EOSINOPHILS PERCENT AUTO 0 % (0-6); Hematocrit 36.3 % (33.0-51.0); Hemoglobin 11.2 g/dL (11.5-16.0); IMMATURE GRAN ABSOLUTE AUTO 0.25 K/mm3 (0.00-0.10); IMMATURE GRAN PERCENT AUTO 1 % (0-1); LYMPHOCYTES ABSOLUTE AUTO 4.33 K/mm3 (0.84-5.20); LYMPHOCYTES PERCENT AUTO 17 % (21-46); MONOCYTES ABSOLUTE AUTO 2.06 K/mm3 (0.16-1.47); MONOCYTES PERCENT AUTO 8 % (4-13); Mean Corpuscular HGB 26.5 pg (26.0-34.0); Mean Corpuscular HGB Conc 30.9 g/dL (31.5-36.5); Mean Corpuscular Volume 86 fL (80-100); Mean Platelet Volume 10.3 fL (9.1-12.4); NEUTROPHILS ABSOLUTE AUTO 18.48 K/mm3 (1.96-9.15); NEUTROPHILS PERCENT AUTO 73 % (41-73); Platelet Count 385 K/mm3 (150-400); RDW Coefficient Variation 14.3 % (11.7-14.2); RDW Standard Deviation 44.1 fL (35.1-46.3); Red Blood Cell Count 4.23 M/mm3 (3.80-5.20); White Blood Cell Count 25.18 K/mm3 (4.00-11.30)
[2018-06-14 03:42] LABS: Anion Gap 8 mmol/L (6-16); Blood Urea Nitrogen 19 mg/dL (8-24); Bun/Creatinine Ratio 27.3 (12.0-20.0); CO2, Blood 26 mmol/L (21-32); Calcium, Blood 9.1 mg/dL (8.5-10.1); Chloride, Blood 107 mmol/L (98-108); Glomerular Filtration Rate >60 (60-); Glucose, Blood 75 mg/dL (70-99); Potassium, Blood 4.1 mmol/L (3.5-5.5); Sodium, Blood 141 mmol/L (136-145)
--- NOTE | 2018-06-14 05:19 | NUR ---
SHIFT ASSESSMENT NO ACUTE CHANGES NOTED T/O SHIFT. PT CALM, QUIET, COOPERATIVE, FREQUENTLY AMBULATES IN ROOM INDENDENTLY, OCC CRYING, LABILE, OCC SMILING, OCC WITHDRAWN, TALKING LESS WITH STAFF TODAY. PT FREQUENTLY WALKS TO DOOR AND REQUESTS NURSING ASSISTANCE. PT SLEPT APPROXIMATELY 6 HOURS T/O SHIFT. PT CURRENTLY SITTING IN CHAIR AND LOOKING OUT WINDOWN. SENSATION INTACT. DENIES N/T. PT OLVERA. NO WEAKNESS NOTED. PT REPOSISITONS SELF. PT AMBULATES INDEPENDENTLY. PT DENIES PAIN/DISCOMFORT. NO S/SX OF PAIN/DISCOMFORT. PT DENIES SI T/O SHIFT. PT'S CALL LIGHT REMAINS IN PLACE. PT'S ROOM IS DIRECTLY ACROSS FROM NURSES STATION WITH CLOSE SUPERVISION. SI PRECAUTIONS WITH CAMERA MONITORING. PT REMAINS ON 2 MD HOLD. WAITING FOR PLACEMENT TO PSYCH FACILITY. PT IS REQUESTING TO NOT BE PLACED IN INPATIENT PSYCH FACILITY AND TO REMOVE 2 MD HOLD. PT STATED, "I ONLY HEAR VOICES WHEN I'M HIGH ON METH. I WAS HIGH ON METH IN LONG TERM. THE VOICES TOLD ME TO HURT MYSELF. WHEN I'M NOT HIGH, I DON'T HEAR VOICES. SO I DON'T NEED TO GO TO A PSYCH FACILITY WHEN I DON'T HEAR VOICES AND I DON'T WANT TO HURT MYSELF". LUNGS CLEAR. PT ON RA. OXY SAT >95%. RR 12 TO 16. DENIES SOB. OCC NONPRODUCTIVE COUGH. AFEBRILE. NO TELE. RADIAL PULSE 90'S TO 110'S. BP STABLE AFTER ADMINISTERING SCHEDULE [place]ASC. STRONG PULSES. WARM, PINK SKIN. ACTIVE BT X4 QUADRANTS. ABD MILD DIST (PT STATES ABD DIST IS NORMAL), SOFT, NONTENDER. NO N/V. NO BM. PT VOIDS WITH BATHROOM PRIVELEGES. CLOUDY, YELLOW, FOULD SMELLING URINE. PIV X1 - SL. WILL CONT TO MONITOR PT AND WILL PROVIDE BEDSIDE REPORT TO ONCOMING NURSE THIS AM.
--- NOTE | 2018-06-14 09:30 | NUR ---
ASSESSMENT PT RESTING QUIETLY IN BED AFTER BREAKFAST. VSS EXCEPT SLIGHT FEVER, MEDICATED WITH PRN TYLENOL. C/O 6/10 ABDOMINAL PAIN, STATES "I GET CYSTS SOMETIMES", MEDICATED WITH PRN TYLENOL. PT ALERT AND ORIENTED, SMILING AND TALKATIVE THIS MORNING. DENIES HALLUCINATIONS, STATES SHE DOES NOT HEAR VOICES IF SHE IS NOT ON METH, DENIES HEARING VOICES NOW, DENIES SUICIDAL IDEATIONS. STATES "I DO NOT WANT TO GO TO AN INPT FACILITY, I WANT TO GO HOME AND RESUME MY AA MEETINGS AND WORK WITH MY CLEAN UP PERSON" PT COOPERATIVE AND PLEASANT TODAY. STATES SHE HAS MULTIPLE PHONE CALLS SHE NEEDS TO MAKE TO HER CLINICAL TRIAL ASSOCIATE AND TO THE COURTS. INFORMED HER THAT STAFF WILL NEED TO BE AVAILABLE TO SUPERVISE PHONE CALLS, PT AGREEABLE AND COOPERATIVE. WILL CONTINUE TO MONITOR.
--- NOTE | 2018-06-14 11:40 | NUR ---
MARKET EDITOR PHONE CALL PT ON THE PHONE WITH HER MARKET EDITOR. REQUESTING DR. JIMENEZ'S PHONE NUMBER, INFORMED THAT RN WOULD TRY TO CONTACT HIM TO FIND OUT AN ETA. PT PHONE CALL COMPLETE, PT STATES "MY MARKET EDITOR SAYS I CAN'T BE HELD MORE THAN 5 DAYS WITH A 2 DOCTOR HOLD." INFORMED PT THAT DR. JIMENEZ WOULD BE SEEING HER THIS AFTERNOON AND SHE CAN DISCUSS HER APPOINTMENT NEEDS AND CONCERNS WITH HIM. PT CALLING THE COURTS TO SETTLE INFORMATION R/T COURT HEARINGS.
--- NOTE | 2018-06-14 11:47 | NUR ---
[facility] VISIT JAVI SNELL FROM [facility] ([facility]) HERE FOR A VISIT FROM [phone]. PT REQUESTING THAT DR. JIMENEZ CALL JAVI ON HER CELL AT [phone] OR OFFICE AT [phone]. PT STATES [facility] WANTS TO SET UP AN APPOINTMENT TO MEET WITH THE PT TOMORROW, June AND RESUME CHILD VISITATION ON June. INFORMED PT THAT RN WILL PASS INFORMATION ON TO DR. JIMENEZ.
--- NOTE | 2018-06-14 13:58 | NUR ---
DR. JIMENEZ IN ROOM TO EVALUATE PT.
[2018-06-14] MEDS ORDERED: ACET325 PO (15:37)
[2018-06-14] MEDS ORDERED: AMLO5 PO (15:38)
[2018-06-14] MEDS ORDERED: CITA20 PO (15:39)
[2018-06-14] MEDS ORDERED: Abilify2 MG PO (15:39)
[2018-06-14] MEDS ORDERED: HYDCHL25 PO (15:40)
[2018-06-14] MEDS ORDERED: LEVO750 PO (15:41)
[2018-06-14] MEDS ORDERED: MELA3 PO (15:41)
[2018-06-14] MEDS ORDERED: NICO21TP TOP (15:42)
[2018-06-14] MEDS ORDERED: ALBU90OI INH (15:44)
--- NOTE | 2018-06-14 16:00 | NUR ---
DISCHARGE NOTE PT STABLE FOR DISCHARGE. PRESCRIPTIONS FAXED TO [facility]. BELONGINGS RETURNED TO PT. SPOKE TO DEEPA AT [facility], DEEPA CONFIRMED THAT PT HAD A ROOM AT [facility]. DISCHARGE INSTRUCTIONS AND DISCHARGE MEDICATIONS REVIEWED WITH PT. VERBALIZES UNDERSTANDING AND DENIES QUESTIONS. EDUCATED THE PT TO NOT ABUSE ANY SUBSTANCES PER DR. JIMENEZ. PT VERBALIZES UNDERSTANDING AND DENIES QUESTIONS. PT STATES SHE WILL WALK OVER TO [facility] TO PHARMACEUTICAL ASSISTANT HER MEDICATION, THEN JAVI OR KAYLA FROM [facility] OR HER SON WILL MEET HER THERE AND TAKE HER TO [facility]. PT AMBULATED TO ICU WAITING ROOM WITH BELONGINGS INCLUDING A VASE OF ENNIS, ACCOMPANIED BY EDVIN DAVIS. PT GOT ONTO THE ICU WAITING ROOM COMPUTER, PT STATES "I GOT IT FROM HERE" PT TO WALK TO [facility].
--- NOTE | 2018-06-14 16:30 | NUR ---
PT REQUESTED TO WALK OUT OF THE HOSPITAL. I WALKED WITH HER. WHEN WE GOT TO THE ICU WAITING ROOM SHE SAW A COMPUTER AND SAID SHE WANTED TO USE IT. I TOLD HER I HAD TO WALK HER OUT SINCE SHE WAS DISCHARED AND SHE SAID SHE WAS GOOD AND NEEDED TO USE THE COMPUTER. I REMINDED HER SHE STILL NEEDED TO GET TO THE PHARMACY FOR HER MEDS AND RIDE. PT SAID SHE UNDERSTOOD WHAT SHE HAD TO DO. I STAYED WITH HER FOR A MIN AND SHE LOOKED AT ME AND SAID SHE WOULD BE GOOD BY HERSELF. RN NOTIFED\SECURITY NOTIFIED
== END 2018-06-14 15:59 | disposition home or self-care (01) | DRG 922 ==
LOC: ER 12:46 → ICUE 14:05 → ICUW 14:05 → ICUE 15:19
PROVIDERS: Emergency Medicine; Internal Medicine Critical Care Medicine; ADMIT Family Medicine
PROC: 0BH17EZ Insertion of Endotracheal Airway into Trachea, Via Natural or Artificial Opening (ICD-10-PCS; principal; 2018-06-10)
PROC: 5A1945Z Respiratory Ventilation, 24-96 Consecutive Hours (ICD-10-PCS; 2018-06-10)
DX: T71.162A Asphyxiation due to hanging, intentional self-harm, initial encounter (principal); J96.01 Acute respiratory failure with hypoxia; N39.0 Urinary tract infection, site not specified; F33.2 Major depressive disorder, recurrent severe without psychotic features; I10 Essential (primary) hypertension; D72.829 Elevated white blood cell count, unspecified; B96.20 Unspecified Escherichia coli [E. coli] as the cause of diseases classified elsewhere; J44.9 Chronic obstructive pulmonary disease, unspecified; B18.2 Chronic viral hepatitis C; R55 Syncope and collapse; F17.210 Nicotine dependence, cigarettes, uncomplicated; F19.10 Other psychoactive substance abuse, uncomplicated; R45.1 Restlessness and agitation
CPT/HCPCS: 31500; 31720; 36415; 36600; 51702; 70450; 70491; 70498; 71045; 80048; 80053; 81001; 82803; 82947; 83735; 84100; 84484; 84703; 85007; 85025; 85027; 87070; 87077; 87086; 87147; 87186; 87205; 94002; 94003; 94640; 96374-59; 99291-25; 99292; G0480; J1650; J2060; J2250; J2704; J2920; J2930; J7030; J7070; Q9967

== ENCOUNTER 2018-06-29 02:27 | Emergency (ER) | payer OTHER ==
[~2018-06-29 02:27] MED LIST changes: +ACET325 PO; +AMLO5 PO; +Abilify2 MG PO; +HYDCHL25 PO; +MELA3 PO; +NICO21TP TOP
== END 2018-06-29 04:35 | disposition home or self-care (01) ==
LOC: ER 02:27
DX: S00.03XA Contusion of scalp, initial encounter (principal); J44.9 Chronic obstructive pulmonary disease, unspecified; M54.9 Dorsalgia, unspecified; G89.29 Other chronic pain; F17.210 Nicotine dependence, cigarettes, uncomplicated; Z88.5 Allergy status to narcotic agent; Z88.6 Allergy status to analgesic agent; Z88.8 Allergy status to other drugs, medicaments and biological substances; Z79.899 Other long term (current) drug therapy; X58.XXXA Exposure to other specified factors, initial encounter
CPT/HCPCS: 70450; 99284-25; A9270-GY

== ENCOUNTER 2018-07-13 16:47 | Emergency (ER) | payer OTHER ==
[~2018-07-13] VITALS: Ht 162.6 cm; Wt 81.7 kg
== END 2018-07-13 17:53 | disposition home or self-care (01) ==
LOC: ER 16:47
DX: S16.1XXA Strain of muscle, fascia and tendon at neck level, initial encounter (principal); Z88.5 Allergy status to narcotic agent; Z88.8 Allergy status to other drugs, medicaments and biological substances; J44.9 Chronic obstructive pulmonary disease, unspecified; F17.200 Nicotine dependence, unspecified, uncomplicated; X58.XXXA Exposure to other specified factors, initial encounter
CPT/HCPCS: 99283

== ENCOUNTER 2018-08-08 15:19 | Emergency (ER) | payer OTHER ==
[~2018-08-08] VITALS: Ht 162.6 cm; Wt 72.6 kg
[2018-09-26] MEDS ORDERED: CYCL10 PO (13:59)
[2018-09-26] MEDS ORDERED: CITA20 PO (13:59)
[2018-09-26] MEDS ORDERED: LORA1 SL (16:03)
== END 2018-08-08 16:45 | disposition home or self-care (01) ==
LOC: ER 15:19
DX: F41.9 Anxiety disorder, unspecified (principal); F15.90 Other stimulant use, unspecified, uncomplicated; T14.8XXA Other injury of unspecified body region, initial encounter; X58.XXXA Exposure to other specified factors, initial encounter; J44.9 Chronic obstructive pulmonary disease, unspecified; Z88.5 Allergy status to narcotic agent; Z88.8 Allergy status to other drugs, medicaments and biological substances; F17.200 Nicotine dependence, unspecified, uncomplicated
CPT/HCPCS: 90471; 90714; 99284-25

== ENCOUNTER 2018-08-09 11:30 | Emergency (ER) | payer OTHER ==
[~2018-08-09] VITALS: Ht 162.6 cm; Wt 72.6 kg
[2018-09-26] MEDS ORDERED: CITA20 PO (13:59)
[2018-09-26] MEDS ORDERED: CYCL10 PO (13:59)
[2018-09-26] MEDS ORDERED: LORA1 SL (16:03)
== END 2018-08-09 12:35 | disposition left against medical advice (07) ==
LOC: ER 11:30
DX: Z53.21 Procedure and treatment not carried out due to patient leaving prior to being seen by health care provider (principal)

== ENCOUNTER 2019-01-15 13:40 | Emergency (ER) | payer OTHER ==
[~2019-01-15] VITALS: Ht 162.6 cm; Wt 72.6 kg
[~2019-01-15 13:40] MED LIST changes: +LORA1 SL
[2019-01-15] MEDS ORDERED: PEPCID40 MG PO (13:58)
[2019-01-15] MEDS ORDERED: DIPH50 PO (13:58)
[2019-01-15] MEDS ORDERED: METPRE4DP PO (13:58)
== END 2019-01-15 14:10 | disposition home or self-care (01) ==
LOC: ER 13:40
DX: T78.3XXA Angioneurotic edema, initial encounter (principal); T78.2XXA Anaphylactic shock, unspecified, initial encounter; J45.909 Unspecified asthma, uncomplicated; E03.9 Hypothyroidism, unspecified; F17.210 Nicotine dependence, cigarettes, uncomplicated
CPT/HCPCS: 96374; 96375; 99283-25; J2930

== ENCOUNTER 2021-05-16 10:43 | Emergency (ER) | payer OTHER ==
[~2021-05-16] VITALS: Ht 162.6 cm; Wt 104.3 kg
[~2021-05-16 10:43] MED LIST changes: +PEPCID40 MG PO
[2021-05-16 11:18] LABS: Source, Urine Clean Catch
[2021-05-16 11:22] LABS: Appearance, Urine Clear (Clear); Bilirubin, Urine Neg (Neg); Blood, Urine Neg (Neg); Color, Urine Yellow (P-Yellow); Glucose Qualitative, Urine Neg (Neg); Ketones, Urine Neg (Neg); Leukocyte Esterase, Urine Neg (Neg); Nitrite, Urine Neg (Neg); Protein, Urine Neg (Neg); Specific Gravity, Urine 1.015 (1.003-1.022); Urobilinogen, Urine NORM (Normal)
[2021-05-16 11:32] LABS: BASOPHILS ABSOLUTE AUTO 0.04 K/mm3 (0.00-0.23); BASOPHILS PERCENT AUTO 1 % (0-2); EOSINOPHILS ABSOLUTE AUTO 0.08 K/mm3 (0.00-0.68); EOSINOPHILS PERCENT AUTO 1 % (0-6); Hematocrit 37.8 % (33.0-51.0); IMMATURE GRAN ABSOLUTE AUTO 0.05 K/mm3 (0.00-0.10); IMMATURE GRAN PERCENT AUTO 1 % (0-1); LYMPHOCYTES ABSOLUTE AUTO 2.29 K/mm3 (0.84-5.20); LYMPHOCYTES PERCENT AUTO 28 % (21-46); MONOCYTES ABSOLUTE AUTO 0.82 K/mm3 (0.16-1.47); MONOCYTES PERCENT AUTO 10 % (4-13); Mean Corpuscular HGB 26.8 pg (26.0-34.0); Mean Corpuscular HGB Conc 31.7 g/dL (31.5-36.5); Mean Corpuscular Volume 85 fL (80-100); NEUTROPHILS ABSOLUTE AUTO 4.92 K/mm3 (1.96-9.15); NEUTROPHILS PERCENT AUTO 60 % (41-73); Platelet Count 429 K/mm3 (150-400); RDW Coefficient Variation 14.2 % (11.7-14.2); RDW Standard Deviation 43.8 fL (35.1-46.3); Red Blood Cell Count 4.47 M/mm3 (3.80-5.20)
[2021-05-16 11:42] LABS: Alanine Aminotransfer (ALT/SGP 37 U/L (12-78); Albumin, Blood 3.3 g/dL (3.4-5.0); Albumin/Globulin Ratio 0.8 (0.8-1.8); Alk Phos 93 U/L (50-136); Anion Gap 5 mmol/L (6-16); Aspartate Aminotrans (AST/SGOT 31 U/L (12-37); Bilirubin, Total 0.5 mg/dL (0.1-1.0); Blood Urea Nitrogen 8 mg/dL (8-24); CO2, Blood 27 mmol/L (21-32); Calcium, Blood 8.8 mg/dL (8.5-10.1); Chloride, Blood 107 mmol/L (98-108); Creatinine, Blood 0.67 mg/dL (0.40-1.00); Globulin, Blood 4.2 g/dL (2.2-4.0); Glomerular Filtration Rate >60 (60-); Glucose, Blood 96 mg/dL (70-99); Sodium, Blood 139 mmol/L (136-145); Total Protein, Blood 7.5 g/dL (6.4-8.2)
[2021-05-16] MEDS ORDERED: DICY20 PO (13:44)
== END 2021-05-16 14:04 | disposition home or self-care (01) ==
LOC: ER 10:43
PROVIDERS: Physician Assistant
DX: R10.31 Right lower quadrant pain (principal); J44.9 Chronic obstructive pulmonary disease, unspecified; F17.200 Nicotine dependence, unspecified, uncomplicated; Z79.899 Other long term (current) drug therapy; Z88.8 Allergy status to other drugs, medicaments and biological substances
CPT/HCPCS: 74177; 76830; 76857; 80053; 81003; 85025; 96374; 96375; 99284-25; J1885; J2405; J7030; Q9967

== ENCOUNTER 2021-09-01 12:39 | Emergency (ER) | payer OTHER ==
[~2021-09-01] VITALS: Ht 162.6 cm; Wt 90.7 kg
[~2021-09-01 12:39] MED LIST changes: +DICY20 PO
== END 2021-09-01 13:45 | disposition home or self-care (01) ==
LOC: ER 12:39
DX: T16.2XXA Foreign body in left ear, initial encounter (principal); J44.9 Chronic obstructive pulmonary disease, unspecified; F17.210 Nicotine dependence, cigarettes, uncomplicated; X58.XXXA Exposure to other specified factors, initial encounter
CPT/HCPCS: 99282

== ENCOUNTER 2021-10-17 16:37 | Emergency (ER) | payer OTHER ==
[~2021-10-17] VITALS: Ht 165.1 cm; Wt 90.7 kg
[2021-10-17 17:24] LABS: Source, Urine Clean Catch
[2021-10-17 17:27] LABS: Appearance, Urine Cloudy (Clear); Bilirubin, Urine Neg (Neg); Blood, Urine 5+ (Neg); Color, Urine Amber (P-Yellow); Glucose Qualitative, Urine Neg (Neg); Ketones, Urine 2+ (Neg); Leukocyte Esterase, Urine 3+ (Neg); Nitrite, Urine Neg (Neg); Protein, Urine 3+ (Neg); Specific Gravity, Urine 1.015 (1.003-1.022); Urobilinogen, Urine NORM (Normal)
[2021-10-17 17:52] LABS: Bacteria Many /hpf; Hyaline Casts 0-2 /lpf (0-2); Red Blood Cells, Urine TNTC /hpf (0-2); Squamous Epithelial Cells Mod /hpf (Few); Transitional Epithelial Cells Rare /hpf (0-Rare); WBC Cast 0-2 /lpf (0); White Blood Cells, Urine TNTC /hpf (0-5)
[2021-10-17] MEDS ORDERED: Pyridium200 MG PO (19:13)
[2021-10-17] MEDS ORDERED: ONDA4ODT MM (19:13)
[2021-10-17] MEDS ORDERED: CEFD300 PO (19:13)
== END 2021-10-17 19:22 | disposition home or self-care (01) ==
LOC: ER 16:37
PROVIDERS: Physician Assistant
DX: N12 Tubulo-interstitial nephritis, not specified as acute or chronic (principal); F17.210 Nicotine dependence, cigarettes, uncomplicated; Z88.5 Allergy status to narcotic agent; Z88.8 Allergy status to other drugs, medicaments and biological substances; Z91.09 Other allergy status, other than to drugs and biological substances; Z79.899 Other long term (current) drug therapy; J44.9 Chronic obstructive pulmonary disease, unspecified
CPT/HCPCS: 81001; 87077; 87086; 87186; 99283; A9270